=== PATIENT | male | born 1995 | race Two or more races ===

== ENCOUNTER 2022-02-18 22:16 | Emergency (ER) | payer MEDICAID, OTHER ==
[~2022-02-18] VITALS: Ht 170.2 cm; Wt 60.0 kg
[2022-02-19] MEDS ORDERED: IBUPROFEN 600 MG TAB PO ONE
[2022-02-19 01:00] VITALS: BP 108/62
== END 2022-02-19 01:21 | disposition home or self-care (01) ==
LOC: ER 22:16 → EDBD 22:16 → ER 02-19 01:21
DX: S00.03XA Contusion of scalp, initial encounter (principal); S70.211A Abrasion, right hip, initial encounter; S80.211A Abrasion, right knee, initial encounter; V49.49XA Driver injured in collision with other motor vehicles in traffic accident, initial encounter; Y93.89 Activity, other specified; Y92.410 Unspecified street and highway as the place of occurrence of the external cause; Y99.8 Other external cause status
CPT/HCPCS: 70450